=== PATIENT | female | born 1985 | race Two or more races ===

== ENCOUNTER 2024-01-24 09:23 | Outpatient (CLI) | payer MEDICAID | END 2024-01-24 23:59 | disposition home or self-care (01) | LOC: MRI 09:23 | PROVIDERS: ATTEND Physician Assistant | DX: M50.121 Cervical disc disorder at C4-C5 level with radiculopathy (principal); M51.24 Other intervertebral disc displacement, thoracic region; M51.34 Other intervertebral disc degeneration, thoracic region; M50.122 Cervical disc disorder at C5-C6 level with radiculopathy; M50.123 Cervical disc disorder at C6-C7 level with radiculopathy; M48.02 Spinal stenosis, cervical region; N13.30 Unspecified hydronephrosis | CPT/HCPCS: 72141; 72146 ==